=== PATIENT | male | born 1975 | race Caucasian/White ===

== ENCOUNTER → 2017-12-28 08:42 | Outpatient (CLI) | payer OTHER, SELFPAY ==
[2017-12-28 09:15] LABS: Hemoglobin A1C% w Est Avg Glu 8.1 % (4.0-6.0)
[2017-12-28 09:49] LABS: Cholesterol 134 mg/dL (140-199); HDL Cholesterol 23 mg/dL (40-60); LDL Cholesterol Calculated 87 mg/dL (<100); Triglycerides 122 mg/dL (35-150)
== END ==
PROVIDERS: Family Provider Internal Medicine; PCP Internal Medicine; Visit Provider Internal Medicine
DX: E11.40 Type 2 diabetes mellitus with diabetic neuropathy, unspecified (principal)
CPT/HCPCS: 36415; 80061; 83036

== ENCOUNTER → 2025-04-14 12:10 | Outpatient (CLI) | payer OTHER, SELFPAY ==
--- NOTE | 2025-04-14 12:13 | DI.RAD.S_ITS ---
PROCEDURE: XR FOOT LT MIN 3V INDICATIONS: Pain in left foot TECHNIQUE: 3 views of the foot were acquired. COMPARISON: None. FINDINGS: Bones: No fractures or dislocations. Mild interphalangeal and 1st MTP joint degeneration. Mild hallux valgus angulation of the 1st MTP with medial bunion formation. Mild plantar posterior calcaneal enthesophytes. No suspicious bony lesions. Soft tissues: No tibiotalar joint effusion. Achilles tendon appears normal. IMPRESSION: No acute osseous abnormalities. Mild degenerative changes throughout the foot as described above. Dictated by: Rico Lawton M.D. on 04/15/2025 at 13:53 Approved by: Rico Lawton M.D. on 04/15/2025 at 13:54
== END ==
PROVIDERS: Family Provider Internal Medicine; PCP Nurse Practitioner; Referring Provider Podiatrist Foot & Ankle Surgery; Visit Provider Podiatrist Foot & Ankle Surgery
DX: M19.072 Primary osteoarthritis, left ankle and foot (principal); M20.12 Hallux valgus (acquired), left foot; M21.612 Bunion of left foot; M77.32 Calcaneal spur, left foot
CPT/HCPCS: 73630